=== PATIENT | female | born 1960 | race Native Hawaiian/Other Pacific Islander ===

== ENCOUNTER 2016-12-22 10:58 | Outpatient (CLI) | payer OTHER ==
[~2016-12-22 10:58] MED LIST: ATEN50TA36 PO; CEPHALEXIN500 MG PO; CITALOPRAM20 MG PO; CLONIDINE0.1 MG PO; DICL1GEL2 TOP; GABA300C2 PO; HYDR25TA60 PO; LISI10TA11 PO; LORA0.5T17 PO; LORA1TAB17 PO; NORCO 10/325***1 TAB PO; PRAVACHOL80 MG PO; QUET100T2 PO; REMERON SOLTAB15 MG PO; TIZA4TAB5 PO
== END 2016-12-22 12:00 | disposition home or self-care (01) ==
LOC: RAD 10:58
DX: M79.672 Pain in left foot (principal)

== ENCOUNTER 2017-08-05 08:55 | Outpatient (CLI) | payer BC | END 2017-08-05 21:22 | disposition home or self-care (01) | LOC: RAD 08:55 | DX: E83.52 Hypercalcemia (principal); M25.551 Pain in right hip; M25.552 Pain in left hip; M43.07 Spondylolysis, lumbosacral region; M81.8 Other osteoporosis without current pathological fracture; M85.88 Other specified disorders of bone density and structure, other site ==

== ENCOUNTER 2017-11-18 09:16 | Outpatient (CLI) | payer BC | END 2017-11-18 19:13 | disposition home or self-care (01) | LOC: MAMMO 09:16 | DX: Z12.31 Encounter for screening mammogram for malignant neoplasm of breast (principal) ==

== ENCOUNTER 2017-12-07 10:22 | Outpatient (CLI) | payer BC | END 2017-12-07 23:24 | disposition home or self-care (01) | LOC: MAMMO 10:22 | DX: R92.8 Other abnormal and inconclusive findings on diagnostic imaging of breast (principal) ==

== ENCOUNTER 2018-11-24 18:05 | Outpatient (CLI) | payer BC | END 2018-11-24 19:11 | disposition home or self-care (01) | LOC: LABW 18:05 | DX: E55.9 Vitamin D deficiency, unspecified (principal); G47.8 Other sleep disorders; M81.0 Age-related osteoporosis without current pathological fracture; R76.0 Raised antibody titer; R79.82 Elevated C-reactive protein (CRP) | CPT/HCPCS: 82306; 82330; 83970; 85651; 86140 ==

== ENCOUNTER 2019-04-12 20:50 | Emergency (ER) | payer BC ==
[~2019-04-12] VITALS: Ht 162.6 cm; Wt 68.0 kg
[2019-04-12 21:30] VITALS: BP 189/80; TEMP 97.9
== END 2019-04-12 21:31 | disposition home or self-care (01) ==
LOC: ED 20:50
PROC: 0X3 Anatomical Regions, Upper Extremities, Control (ICD-10-PCS; principal; 2019-04-12)
DX: L76.22 Postprocedural hemorrhage of skin and subcutaneous tissue following other procedure (principal)
CPT/HCPCS: 99282

== ENCOUNTER 2019-08-08 08:49 | Outpatient (CLI) | payer BC | END 2019-08-08 21:15 | disposition home or self-care (01) | LOC: RAD 08:49 | DX: M81.0 Age-related osteoporosis without current pathological fracture (principal) ==

== ENCOUNTER 2020-02-07 13:18 | Outpatient (CLI) | payer BC | END 2020-02-07 23:11 | disposition home or self-care (01) | LOC: MRI 13:18 | DX: M54.12 Radiculopathy, cervical region (principal) ==

== ENCOUNTER 2020-10-16 07:49 | Outpatient (CLI) | payer OTHER | END 2020-10-16 21:41 | disposition home or self-care (01) | LOC: US 07:49 | PROVIDERS: ATTEND Nurse Practitioner Family | DX: R94.5 Abnormal results of liver function studies (principal) ==

== ENCOUNTER 2021-08-10 08:18 | Outpatient (CLI) | payer OTHER | END 2021-08-10 18:58 | disposition home or self-care (01) | LOC: RAD 08:18 | PROVIDERS: ATTEND Nurse Practitioner Family | DX: E55.9 Vitamin D deficiency, unspecified (principal); E79.0 Hyperuricemia without signs of inflammatory arthritis and tophaceous disease; M85.89 Other specified disorders of bone density and structure, multiple sites; R76.0 Raised antibody titer; Z79.899 Other long term (current) drug therapy ==

== ENCOUNTER 2022-12-10 13:23 | Outpatient (CLI) | payer OTHER | END 2022-12-10 18:59 | disposition home or self-care (01) | LOC: RAD 13:23 | PROVIDERS: ATTEND Physician Assistant | DX: M54.12 Radiculopathy, cervical region (principal); M54.16 Radiculopathy, lumbar region; M47.814 Spondylosis without myelopathy or radiculopathy, thoracic region ==

== ENCOUNTER 2023-01-06 08:50 | Outpatient (CLI) | payer OTHER | END 2023-01-06 18:56 | disposition home or self-care (01) | LOC: NM 08:50 | PROVIDERS: ATTEND Student in an Organized Health Care Education/Training Program | DX: D49.2 Neoplasm of unspecified behavior of bone, soft tissue, and skin (principal) | CPT/HCPCS: A9561 ==